=== PATIENT | male | born 1990 ===

== ENCOUNTER 2017-03-06 04:23 | Emergency (ER) | payer SELFPAY ==
[2017-03-06 04:43] VITALS: O2SAT 99
[2017-03-06] MEDS ORDERED: Bacitracin 500 Units/gm Oint Foilpak UD TOP ONE (05:08)
[2017-03-06] MEDS ORDERED: Bacitracin 500 Units/gm Oint Foilpak UD ONE ×2 (05:17→06:49)
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
[2017-03-06 07:41] VITALS: BP 110/67; PULSE 79; RESP 18; TEMP 97.6
== END 2017-03-06 07:41 | disposition home or self-care (01) ==
LOC: C.ER 04:23
DX: S02.2XXA Fracture of nasal bones, initial encounter for closed fracture (principal); S02.81XA Fracture of other specified skull and facial bones, right side, initial encounter for closed fracture; S01.511A Laceration without foreign body of lip, initial encounter; S01.21XA Laceration without foreign body of nose, initial encounter; Y04.0XXA Assault by unarmed brawl or fight, initial encounter